=== PATIENT | female | born 1985 | race American Indian/Alaskan Native ===

== ENCOUNTER 2016-05-22 09:25 | Emergency (ER) | payer SELFPAY ==
[2016-05-22 10:01] VITALS: BP 133/84
--- NOTE | 2016-05-22 11:31 | Emergency Department Report ---
ED Laceration HPI - HPI Chief Complaint: Wound/Laceration Stated Complaint: LT HAND INJURY/VOMITING/NAUSEA Time Seen by Provider: 05/22/16 10:58 Occurred When: Yesterday (At ~ 6:00 pm.) Tetanus Status: Not up to Date (last updated in 2004.) Laceration Symptoms: Yes Pain, No Foreign Body Sensation, No Numbness, No Weakness ED Review of Systems ROS: Stated complaint: LT HAND INJURY/VOMITING/NAUSEA Other details as noted in HPI Comment: All other systems reviewed and negative ED Past Medical Hx - Past Medical History Hx Psychiatric Treatment: Yes (bipolar) - Surgical History Additional Surgical History: tubal, right wrist - Social History Smoking Status: Current Every Day Smoker Substance Use Type: Alcohol - Medications Home Medications: Home Medications Medication Instructions Recorded Confirmed Last Taken Type Ibuprofen [Motrin] 800 mg PO Q8HR PRN #30 tablet 05/22/16 Unknown Rx Sulfamethoxazole/Trimethoprim 1 each PO BID #10 tablet 05/22/16 Unknown Rx [Bactrim DS TAB] Laceration Physical Exam - Exam General: Vital signs noted. No distress. Alert and acting appropriately. Laceration Location: Upper Extremity Full Body Front + Back: 1 - 1 cm superficial flappy lac over 1st DIP. FROM. No tendon or muscle involvement. No active bleed. No visible foreign body. + distal pulses. Laceration Exam: Yes Normal Distal CMS, No Foreign Body, No Exposed Tendon, Vessel, or Nerve, No Tendon Injury ED Course Vital Signs 05/22/16 09:58 Temperature 98.0 F Pulse Rate 96 H Respiratory 16 Rate Blood Pressure 133/84 O2 Sat by Pulse 99 Oximetry Critical care attestation.: If time is entered above; I have spent that time in minutes in the direct care of this critically ill patient, excluding procedure time. ED Disposition Clinical Impression: Laceration of thumb, left Qualifiers: Encounter type: initial encounter Qualified Code(s): S61.012A - Laceration without foreign body of left thumb without damage to nail, initial encounter Disposition: DISCHARGED TO HOME OR SELFCARE Is pt being admited?: No Does the pt Need Aspirin: No Condition: Stable Instructions: Acute Wound Care (ED), Wound Infection (ED) Additional Instructions: Follow-up instructions for care. Take medications as prescribed. Remember wound care instructions. Follow-up with PCP in 2-3 days for follow-up and wound check. Return to ED for new or worsening condition. Referrals: [facility] [Outside] - 2-3 Days PRIMARY CARE,MD [Primary Care Provider] - 2-3 Days
[2016-05-22] MEDS ORDERED: BOOSTRIX IM ONE (11:33)
[2016-05-22] MEDS ORDERED: MOTRIN PO ONE (11:34)
== END 2016-05-22 11:46 | disposition home or self-care (01) ==
LOC: ED 09:25
DX: S61.012A Laceration without foreign body of left thumb without damage to nail, initial encounter (principal); F31.9 Bipolar disorder, unspecified; F17.200 Nicotine dependence, unspecified, uncomplicated; X58.XXXA Exposure to other specified factors, initial encounter; Y93.89 Activity, other specified; Y99.8 Other external cause status; Y92.89 Other specified places as the place of occurrence of the external cause
CPT/HCPCS: 90471; 90715; 99282